=== PATIENT | female | born 1985 | race African-American/Black ===

== ENCOUNTER 2020-09-23 12:30 | Outpatient (RCR) | payer OTHER, SELFPAY ==
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
--- NOTE | 2020-07-15 12:56 | PCPTNOTE ---
Patient did not show up for scheduled appointment this date. Left message on voicemail.
--- NOTE | 2020-07-15 14:23 | PCOTNOTE ---
Patient did not show or call to cancel appt today. PT called patient and left message.
--- NOTE | 2020-07-23 12:28 | PCPTNOTE ---
Patient called & cancelled scheduled appointment this date due to unable to find a sitter.
--- NOTE | 2020-07-25 12:52 | PCOTNOTE ---
Patient did not show or call to cancel re-evaluation appt today, this is patients second no show/no call. Called patient and left message educating on attendance policy of discharge after three missed appointments.
--- NOTE | 2020-07-25 13:31 | PCPTNOTE ---
Patient did not show up for scheduled appointment this date. No additional therapy appt scheduled at this time.
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
--- NOTE | 2020-09-12 10:59 | PCPTNOTE ---
Patient called & cancelled scheduled appointment this date due to no transportation.
--- NOTE | 2020-09-25 09:44 | PCPTNOTE ---
This treatment is being continued on visit 18 to number [id number]. Please see documentation on both accounts to view progress. Completed interventions, outcomes, and problems have been marked as Inactive to facilitate the copying of the Care plan routine for recurring accounts.
== END 2020-09-25 08:52 | disposition home or self-care (01) ==
LOC: ANHPT 12:30
PROVIDERS: PCP Family Medicine; Visit Provider Family Medicine
DX: G81.90 Hemiplegia, unspecified affecting unspecified side (principal)
CPT/HCPCS: 97110; 97112; 97116; 97161; 97165; 97168; 97530

== ENCOUNTER 2020-10-03 11:00 | Outpatient (RCR) | payer OTHER, SELFPAY ==
--- NOTE | 2020-09-25 09:54 | PCPTNOTE ---
The treatment documented on this account is a continuation of the treatment documented on visit number 18 from [id number]. Please see documentation on both accounts to view progress. The Plan of Care has been transitioned and updated within the new V#. I have addressed and agree with the discipline specific Problems, Interventions, and Goals for the current certification period. Completed interventions, outcomes, and problems have been marked as Inactive to facilitate the copying of the Care plan routine for recurring accounts.
--- NOTE | 2020-09-30 16:18 | PCPTNOTE ---
Patient called & cancelled scheduled appointment this date due to she overslept.
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
== END 2020-10-04 08:23 | disposition home or self-care (01) ==
LOC: ANHPT 11:00
PROVIDERS: PCP Family Medicine; Visit Provider Family Medicine
DX: G81.90 Hemiplegia, unspecified affecting unspecified side (principal)
CPT/HCPCS: 97110; 97112; 97116; 97530